=== PATIENT | female | born 1980 | race Caucasian/White ===

== ENCOUNTER 2022-07-14 21:30 | Emergency (ER) | payer SELFPAY ==
[~2022-07-14] VITALS: Ht 167.6 cm; Wt 69.0 kg
[2022-07-14] MEDS ORDERED: MAGNESIUM/ALUMINUM HYDROXIDE/SIMETHICONE 30ML UDC PO STA (22:27)
[2022-07-14] MEDS ORDERED: ACETAMINOPHEN 325MG TABLET PO ONE (22:30)
[2022-07-14] MEDS ORDERED: FAMOTIDINE 20MG TABLET PO ONE (22:30)
[2022-07-15 00:24] VITALS: BP 124/88
== END 2022-07-15 00:27 | disposition home or self-care (01) ==
LOC: ER 21:30
DX: S00.03XA Contusion of scalp, initial encounter (principal); X58.XXXA Exposure to other specified factors, initial encounter; Y93.89 Activity, other specified; Y92.89 Other specified places as the place of occurrence of the external cause; Y99.8 Other external cause status
CPT/HCPCS: 81025; 99284